=== PATIENT | female | born 1965 | race Caucasian/White ===

== ENCOUNTER → 2023-02-20 | Outpatient (CLI) | payer OTHER ==
--- NOTE | 2023-02-20 13:12 | Diagnostic Imaging Report ---
PROCEDURE: Pelvic comp/transvaginal sonogram. TECHNIQUE: Complete transabdominal and transvaginal pelvic ultrasound was performed. In addition, limited pelvic Doppler was performed. INDICATION: Abnormal uterine bleeding. Uterus measures 7.2 x 5.6 x 4.3 cm. Endometrium is 5 mm in thickness. There appear to be myometrial masses present suggestive of fibroids. Largest is anterior measuring 3.6 x 1.6 x 3.0 cm. These do show some internal vascularity. The right ovary measures 1.9 x 1.7 x 1.0 cm and the left ovary measures 1.9 x 1.4 x 1.3 cm. Both ovaries demonstrate blood flow. No adnexal mass or free fluid is detected. IMPRESSION: Fibroid uterus. The study is otherwise unremarkable. Dictated by: Dictated on workstation # [id number]
== END ==
LOC: RAD FS 11:52
DX: D25.9 Leiomyoma of uterus, unspecified (principal)
CPT/HCPCS: 76830; 76856